=== PATIENT | male | born 1935 | race African-American/Black ===

== ENCOUNTER → 2017-10-21 | Outpatient (CLI) | payer OTHER ==
--- NOTE | 2017-10-21 13:48 | RAD ---
EXAM: Bilateral lower extremity venous Doppler sonogram. HISTORY: Edema. TECHNIQUE: Mcnair scale and color Doppler sonographic evaluation of the bilateral lower extremity veins with spectral waveform analysis was performed. FINDINGS: There is normal color flow, normal compressibility and there are normal spectral waveforms in the common femoral, superficial femoral, popliteal, posterior tibial and greater saphenous veins. IMPRESSION: No Doppler evidence of lower extremity deep venous thrombosis. Electronically signed by: Jazmin Watts MD (10/21/2017 1:44 PM) [place] [id number]
== END | disposition home or self-care (01) ==
LOC: US 13:08
PROVIDERS: ATTEND Nurse Practitioner
DX: R60.0 Localized edema (principal)
CPT/HCPCS: 93970

== ENCOUNTER → 2017-11-13 | Outpatient (CLI) | payer OTHER ==
[~2017-11-13] MED LIST: BUPIVACAINE MPF 0.25% 10 ML VIAL. ONE; IOHEXOL 300 MG/ML 50 ML VIAL. ONE; LIDOCAINE 1% PF 30 ML VIAL. ONE; methylPREDNISolone ACETATE 80 MG/ML VIAL. ONE
== END ==
LOC: SURG 13:02
PROVIDERS: ATTEND Anesthesiology Pain Medicine
DX: M25.511 Pain in right shoulder (principal); I10 Essential (primary) hypertension; I25.10 Atherosclerotic heart disease of native coronary artery without angina pectoris; Z87.39 Personal history of other diseases of the musculoskeletal system and connective tissue; Z86.73 Personal history of transient ischemic attack (TIA), and cerebral infarction without residual deficits
CPT/HCPCS: 20610; 77002; J1040; J2001; J3490; Q9967; 20611

== ENCOUNTER 2018-07-27 13:08 | Inpatient (IN) | payer MEDICARE, OTHER ==
[~2018-07-27] VITALS: Ht 182.9 cm; Wt 80.7 kg
[2018-07-27 17:06] VITALS: BP 169/69
--- NOTE | 2018-07-27 18:00 | NUR ---
Swing Bed Admission Patient Handbook for Correction given to patient. Nursing Problem: weakness and unsteadiness sec to recent hospitalization Cognitive/Behavioral: alert, oriented, cooperative, speaks with a life long stutter Pain: c/o pain in both shoulders and knees Respiratory Status: clear, no soa/cough, RA Skin: dry, intact Bowel/Bladder Continence: frequency, urgency, occ incontinence, wears a brief ADL Functional Status: needs assist w/ ADLs sec to right shoulder cuff tear causing weakness and pain (pt has been told the shoulder in inoperable), uses walker with standby assist, uses left hand to feed and toilet himself, needs assist with dressing Fall(s) prior to admission? none Admitted from [facility] inpatient. Had been admitted there on 07/24/18 for GI bleed
[2018-07-27 19:54] VITALS: BP 151/61
--- NOTE | 2018-07-27 20:08 | NUR ---
NSG NOTE; ADMISSION ADMIT TO ROOM 103 AT 1650 LONG TERM FROM [facility] INPATIENT STATUS FOR RECONDITIONING AND STRENGTHENING FOR RETURN HOME WITH SON AND DIL. PT'S SON WAS HERE ON ARRIVAL PT WAS ADMITTED TO [facility] ON 07/24/18 WITH GI BLEED
[2018-07-27] MEDS ORDERED: HYDR-2869 PO (20:28)
[2018-07-27] MEDS ORDERED: CARB1TAB2 PO (20:28)
[2018-07-27] MEDS ORDERED: TAMS0.4C97 PO (20:28)
[2018-07-27] MEDS ORDERED: OXYB5TAB7 PO (20:28)
[2018-07-27] MEDS ORDERED: SERT100T PO (20:28)
[2018-07-27] MEDS ORDERED: MAGN400T3 PO (20:28)
[2018-07-27] MEDS ORDERED: DOCU100C28 PO (20:28)
[2018-07-27] MEDS ORDERED: BENA20TA4 PO (20:28)
[2018-07-27] MEDS ORDERED: CLOP75TA57 PO (20:28)
[2018-07-27] MEDS ORDERED: HYDR-2155 PO (20:28)
[2018-07-27] MEDS ORDERED: ZINC220T PO (20:28)
[2018-07-27] MEDS ORDERED: ATOR20TA58 PO (20:28)
[2018-07-27] MEDS ORDERED: HYDR50TA6 PO (20:28)
[2018-07-27] MEDS ORDERED: PANT40TA3 PO (20:28)
[2018-07-27] MEDS ORDERED: AMLO10TA8 PO (20:28)
[2018-07-27] MEDS ORDERED: METF10007 PO (20:28)
[2018-07-27] MEDS ORDERED: SULF1TAB23 PO (20:28)
[2018-07-27] MEDS ORDERED: CLON0.1T PO (20:28)
[2018-07-27] MEDS ORDERED: FERR325T14 PO (20:28)
[2018-07-27] MEDS ORDERED: LISI-334 PO (20:28)
[2018-07-27] MEDS ORDERED: FINA5TAB4 PO (20:28)
[2018-07-27] MEDS ORDERED: ASPI-630 PO (20:28)
[2018-07-27] MEDS ORDERED: TRAM50TA PO ×3 (20:28)
[2018-07-27] MEDS ORDERED: SULFAMETHOXAZOLE PO SCH (21:00)
[2018-07-27] MEDS ORDERED: TRIMETHOPRIM PO SCH (21:00)
[2018-07-27] MEDS: MAGNESIUM OXIDE 400 MG TABLET PO SCH (21:38)
[2018-07-27] MEDS: HYDROcodone/APAP 5/325MG 1 TAB TABLET PO PRN (21:39)
[2018-07-27] MEDS: FERROUS SULFATE 325 MG TABLET. PO SCH (21:39)
[2018-07-27] MEDS: ATORVASTATIN CALCIUM 20 MG TABLET PO SCH (21:39)
[2018-07-27] MEDS: CARBIDOPA/LEVODOPA 25/100MG TABLET PO SCH (21:40)
[2018-07-27] MEDS: traMADol 50 MG TABLET PO PRN (21:40)
[2018-07-27] MEDS: OXYBUTYNIN CHLORIDE 5 MG TABLET PO SCH (21:40)
[2018-07-27] MEDS: cloNIDine HCL 0.1 MG TABLET PO SCH (21:41)
[2018-07-27 23:05] VITALS: BP 131/76
--- NOTE | 2018-07-28 05:36 | NUR ---
PT HAD C/O RIGHT SHOULDER PAIN AT BEGINNING OF SHIFT. PRN NORCO GIVEN AND EFFECTIVE. PT SLEPT WELL OVERNIGHT, ONLY WAKING TO GO TO THE BATHROOM. PROGRESSING TOWARDS MEETING GOALS.
[2018-07-28 06:34] VITALS: BP 170/70
[2018-07-28] MEDS ORDERED: ASPIRIN 81 MG TAB.CHEW PO SCH (08:00)
[2018-07-28] MEDS: DOCUSATE SODIUM 100 MG CAPSULE PO SCH (08:28)
[2018-07-28] MEDS: FINASTERIDE 5 MG TABLET PO SCH (08:28)
[2018-07-28] MEDS: SERTRALINE 100 MG TABLET. PO SCH (08:29)
[2018-07-28] MEDS: MAGNESIUM OXIDE 400 MG TABLET PO SCH ×2 (08:29→20:42)
[2018-07-28] MEDS: CARBIDOPA/LEVODOPA 25/100MG TABLET PO SCH ×3 (08:29→20:42)
[2018-07-28] MEDS: LISINOPRIL 20 MG TABLET PO SCH (08:29)
[2018-07-28] MEDS: hydroCHLOROthiazide 25 MG TABLET PO SCH (08:29)
[2018-07-28] MEDS: PANTOPRAZOLE 40 MG TABLET. PO SCH (08:30)
[2018-07-28] MEDS: TAMSULOSIN 0.4 MG CAP.ER.24H. PO SCH (08:30)
[2018-07-28] MEDS: metFORMIN 500 MG TABLET PO SCH ×2 (08:30→16:15)
[2018-07-28] MEDS: amLODIPine BESYLATE 10 MG TABLET PO SCH (08:30)
[2018-07-28] MEDS: FERROUS SULFATE 325 MG TABLET. PO SCH ×3 (08:30→20:42)
[2018-07-28] MEDS: ZINC SULFATE 220 MG CAPSULE. PO SCH (08:31)
[2018-07-28] MEDS: cloNIDine HCL 0.1 MG TABLET PO SCH ×3 (08:31→20:42)
[2018-07-28] MEDS: traMADol 50 MG TABLET PO PRN ×3 (08:41→20:46)
[2018-07-28] MEDS ORDERED: CLOPIDOGREL BISULFATE 75 MG TABLET PO SCH (09:00)
[2018-07-28] MEDS ORDERED: BENAZEPRIL HCL PO SCH (09:00)
[2018-07-28 15:40] VITALS: BP 152/75
--- NOTE | 2018-07-28 19:23 | NUR ---
Swing Bed Admission Nursing Problem: weakness and unsteadiness sec to recent hospitalization Cognitive/Behavioral: alert, oriented, cooperative, speaks with a life long stutter Pain: c/o pain in both shoulders and knees Respiratory Status: clear, no soa/cough, RA Skin: dry, intact Bowel/Bladder Continence: frequency, urgency, occ incontinence, wears a brief ADL Functional Status: needs assist w/ ADLs sec to right shoulder cuff tear causing weakness and pain (pt has been told the shoulder in inoperable), uses walker with standby assist, uses left hand to feed and toilet himself, needs assist with dressing Fall(s) prior to admission? none Admitted from [facility] inpatient. Had been admitted there on 07/24/18 for GI bleed
[2018-07-28 19:30] VITALS: BP 144/57
[2018-07-28] MEDS: HYDROcodone/APAP 5/325MG 1 TAB TABLET PO PRN (19:44)
--- NOTE | 2018-07-28 20:11 | HP ---
ADMIT DATE: 07/27/2018 HISTORY OF PRESENT ILLNESS: The patient is an 83-year-old -[place] male patient who usually follows with the [facility] and lives with his son and ambulates with a cane and a walker, presented with pain and tenderness in his left lower quadrant. The CT scan showed colitis that could be infectious and/or ischemic and apparently he was on aspirin and Plavix. He had had the stroke involving right middle cerebral artery territory with resultant left-sided hemiparesis with residual weakness. On admission, his hemoglobin was 10.3 and white cell count was 12.8. He was investigated and was seen by the Gastroenterology. He underwent upper and lower GI endoscopy. His EGD showed the esophagus was normal. The gastroesophageal junction was at 45 cm, has fine antral nodularity biopsied. He had 12 mm prepyloric polyp biopsied and not removed, and his duodenum was normal to the second portion. Biopsies taken from the second portion. His colonoscopy was done with the scope advanced to the cecum. The ileocolic valve and appendiceal orifices were seen. Preparation was suboptimal with melanotic stool throughout from splenic flexure to the distal descending colon, changes consistent with ischemic colitis. Otherwise, what mucosa seen was normal, was found to have 3 mm sessile polyp at distal transverse, biopsied off and a second 5 mm polyp at proximal sigmoid, biopsied off. No other polyps were seen. Retroflex was normal. It was recommended that his Plavix and aspirin were stopped for a week. He apparently was initially treated also with IV levofloxacin for possible colitis, it was subsequently discontinued. He was transferred to swing bed of [facility] to continue the process of rehabilitation. 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 He is also known to have enlarged prostate for which he is on Flomax. PAST SURGICAL HISTORY: Significant for back surgery and recent upper and lower GI endoscopy and biopsies. FAMILY HISTORY: Positive for high cholesterol and hypertension. SOCIAL HISTORY: He is , lives with his son. Quit smoking in 1986. Does not drink alcohol or recreational drugs. He is retired from a factory. REVIEW OF SYSTEMS: The patient denied any blurring of vision, cataract, glaucoma or macular degeneration. Denied any earache, tinnitus or sensorineural deafness. Denied any nosebleeds, stuffy nose or postnasal drip. Denied any sore throat, sore tongue, toothache, hoarseness of voice or difficulty swallowing. Denied any nausea, vomiting, diarrhea or constipation. Did complain of melena stool. He did complain of frequency, but denied any dysuria or hematuria. Did complain of nocturia. Denied any chest pain or shortness of breath, cough, phlegm or hemoptysis. ALLERGIES: He is allergic to PENICILLIN. MEDICATIONS: He was transferred to our facility to continue on following medications: He is on sulfamethoxazole/trimethoprim 1 tablet twice a day, Flomax 0.8 mg at bedtime, ferrous sulfate 325 mg 3 times a day, Plavix 75 mg once a day, atorvastatin 40 mg, takes 20 mg at bedtime, clonidine 0.1 mg 3 times a day, hydralazine 50 mg 3 times a day, amlodipine 10 mg once a day, benazepril 40 mg once a day, lisinopril 20 mg p.o. daily, aspirin 81 mg once a day, hydrocodone/APAP 5/325 one tablet every 6 hours, tramadol 50 mg daily and tramadol 50 mg at bedtime. He is on sertraline 100 mg at bedtime, carbidopa/levodopa for Sinemet 25/100 one tablet 3 times a day, zinc sulfate 220 mg once a day, hydrochlorothiazide 50 mg once a day, magnesium oxide 400 mg twice a day, Colace 100 mg daily and Protonix 40 mg once a day, metformin 1000 mg twice a day, finasteride 5 mg daily. PHYSICAL EXAMINATION: GENERAL: When I saw him this afternoon, he was sitting on the edge of the bed comfortably in no apparent distress. He was pale, but no jaundice, cyanosis, or thyromegaly. No jugular venous distension. No lower limb edema. VITAL SIGNS: Her heart rate was 68, blood pressure 122/51, temperature was 98.5, respiratory rate was 20, and oxygen saturation was 98% on room air. HEAD, EYES, EARS, NOSE AND THROAT: Showed normocephalic, atraumatic. NECK: Supple. HEART: Showed normal first and second sounds. No gallop, rub or murmur. CHEST: Clear to auscultation. No crepitation or rhonchi. ABDOMEN: Distended, soft with mild tenderness in the left lower quadrant. There is no guarding or rigidity. No organomegaly. All hernial orifice intact. Bowel sounds normal. NEUROLOGIC: He was stuttering. Apparently, this is there since childhood. All his cranial nerves are intact. He moves all extremities without difficulty. He has residual left-sided hemiparesis. He has rotator cuff tear of his right shoulder with limited movement and also pain in his left shoulder. LABORATORY DATA: As of yesterday done at [facility] showed his white cell count was 7200, hemoglobin 8, hematocrit 25, MCV 87 and platelet count of 135,000. His chemistry showed that his serum sodium 136, potassium 3.7, chloride 101, bicarbonate 26, anion gap of 9, BUN 20, creatinine 1.6, estimated GFR was 50 mL per minute. His glucose was 86 and calcium was 8.1, magnesium was 1.5. His prothrombin time was 15.5, INR 1.3. ASSESSMENT: Gastrointestinal bleed with acute blood loss anemia, resolved and the colonoscopy was consistent with ischemic colitis. The patient has multiple other medical problems including hypertension, hyperlipidemia, right middle cerebral artery territory infarct with left-sided hemiparesis, Parkinson's disease, right rotator cuff tear and benign prostatic hypertrophy with bladder outlet obstruction. PLAN: My plan is to hold his Plavix and aspirin for 1 week and we will check his baseline labs and follow him closely. Would continue also with physical and occupational therapy. TRACY VICK MD DR: RENNY/beth JOB#: [id number] / [id number]
[2018-07-28] MEDS: OXYBUTYNIN CHLORIDE 5 MG TABLET PO SCH (20:42)
[2018-07-28] MEDS: ATORVASTATIN CALCIUM 20 MG TABLET PO SCH (20:42)
--- NOTE | 2018-07-28 23:40 | NUR ---
Swing Bed Nursing Note Nursing Problem: Pt here for PT/OT strength and conditioning after hospitalization following a GI bleed. Pt has weakness and unsteadiness r/t recent hospitalization. Cognitive/Behavioral: Pt is A&Ox4. Pt is calm & cooperative with assessment and cares. Pt sitting up in bed watching TV. Pt stated that he had a good day. Pain: Pt c/o pain in both shoulders and knees. PRN Lortab given at change of shift. Respiratory Status: Lungs clear, Pt denies SOA or cough.Pt is on room air. Skin: Skin is dry and intact. Friable skin. Had shower today Bowel/Bladder Continence: Pt with urine frequency and urgency with occ incontinence. Pt wears a brief. LBM 07/28 ADL Functional Status: Pt needs x1 assist w/ ADLs sec to right shoulder cuff tear causing weakness and pain. Pt uses walker with standby assist. Pt uses left hand to feed independently. Pt needs x1 assist with dressing. Pt takes medications whole.
[2018-07-29 05:21] VITALS: BP 171/68
[2018-07-29 06:19] LABS: HEMATOCRIT 26.9 % (39.0-53.0); HEMOGLOBIN 8.8 g/dL (13.0-17.5); RED BLOOD COUNT 3.1 x10^6/uL (4.30-5.70); RED CELL DISTRIBUTION WIDTH 13.9 % (11.5-14.5); WHITE BLOOD COUNT 6.2 x10^3/uL (4.0-11.0)
[2018-07-29 06:31] LABS: ALBUMIN 2.4 g/dL (3.4-5.0); ALBUMIN/GLOBULIN RATIO 0.7 (1.0-1.7); CALCIUM 8.3 mg/dL (8.5-10.1); CREATININE 1.5 mg/dL (0.7-1.3); GFR 54.1; POTASSIUM 3.4 mmol/L (3.5-5.1); TOTAL BILIRUBIN 0.3 mg/dL (0.2-1.0); TOTAL PROTEIN 5.9 g/dL (6.4-8.2)
[2018-07-29] MEDS: TAMSULOSIN 0.4 MG CAP.ER.24H. PO SCH (08:08)
[2018-07-29] MEDS: PANTOPRAZOLE 40 MG TABLET. PO SCH (08:08)
[2018-07-29] MEDS: FINASTERIDE 5 MG TABLET PO SCH (08:08)
[2018-07-29] MEDS: traMADol 50 MG TABLET PO PRN ×2 (08:09→20:25)
[2018-07-29] MEDS: LISINOPRIL 20 MG TABLET PO SCH (08:09)
[2018-07-29] MEDS: cloNIDine HCL 0.1 MG TABLET PO SCH ×3 (08:11→20:24)
[2018-07-29] MEDS: SERTRALINE 100 MG TABLET. PO SCH (08:11)
[2018-07-29] MEDS: MAGNESIUM OXIDE 400 MG TABLET PO SCH ×2 (08:11→20:24)
[2018-07-29] MEDS: amLODIPine BESYLATE 10 MG TABLET PO SCH (08:12)
[2018-07-29] MEDS: hydroCHLOROthiazide 25 MG TABLET PO SCH (08:12)
[2018-07-29] MEDS: CARBIDOPA/LEVODOPA 25/100MG TABLET PO SCH ×3 (08:12→20:23)
[2018-07-29] MEDS: FERROUS SULFATE 325 MG TABLET. PO SCH ×3 (08:12→20:24)
[2018-07-29] MEDS: metFORMIN 500 MG TABLET PO SCH ×2 (08:13→17:16)
[2018-07-29] MEDS: DOCUSATE SODIUM 100 MG CAPSULE PO SCH (08:13)
[2018-07-29] MEDS: ZINC SULFATE 220 MG CAPSULE. PO SCH (08:26)
[2018-07-29] MEDS: HYDROcodone/APAP 5/325MG 1 TAB TABLET PO PRN (13:43)
[2018-07-29 15:00] VITALS: BP 118/67
[2018-07-29 20:15] VITALS: BP 122/74
[2018-07-29] MEDS: OXYBUTYNIN CHLORIDE 5 MG TABLET PO SCH (20:24)
[2018-07-29] MEDS: ATORVASTATIN CALCIUM 20 MG TABLET PO SCH (20:25)
[2018-07-29 23:03] VITALS: BP 170/68
--- NOTE | 2018-07-29 23:45 | NUR ---
Swing Bed Nursing Note Nursing Problem: Pt here for PT/OT strength and conditioning after hospitalization following a GI bleed. Pt has weakness and unsteadiness r/t recent hospitalization. Cognitive/Behavioral: Pt is A&Ox4. Pt is calm & cooperative with assessment and cares. Pt sitting up in bed watching TV. Pt stated that he had a good day. Pain: Pt c/o pain in both shoulders, rating it a 6/10. PRN tramadol given as order with HS medications Respiratory Status: Lungs clear, Pt denies SOA or cough.Pt is on room air. Skin: Skin is dry and intact. Friable skin. Bowel/Bladder Continence: Pt with urine frequency and urgency with occ incontinence. Pt wears a brief. LBM 07/28 ADL Functional Status: Pt needs x1 assist w/ ADLs sec to right shoulder cuff tear causing weakness and pain. Pt uses walker with standby assist. Pt uses left hand to feed independently. Pt needs x1 assist with dressing. Pt takes medications whole.
[2018-07-30 00:08] LABS: HEMOGLOBIN A1C 5.2 % (4.8-5.6)
[2018-07-30 05:45] VITALS: BP 150/63
[2018-07-30] MEDS: PANTOPRAZOLE 40 MG TABLET. PO SCH (08:49)
[2018-07-30] MEDS: LISINOPRIL 20 MG TABLET PO SCH (08:49)
[2018-07-30] MEDS: ZINC SULFATE 220 MG CAPSULE. PO SCH (08:49)
[2018-07-30] MEDS: traMADol 50 MG TABLET PO PRN ×2 (08:49→22:51)
[2018-07-30] MEDS: DOCUSATE SODIUM 100 MG CAPSULE PO SCH (08:49)
[2018-07-30] MEDS: TAMSULOSIN 0.4 MG CAP.ER.24H. PO SCH (08:49)
[2018-07-30] MEDS: FINASTERIDE 5 MG TABLET PO SCH (08:49)
[2018-07-30] MEDS: hydroCHLOROthiazide 25 MG TABLET PO SCH (08:49)
[2018-07-30] MEDS: CARBIDOPA/LEVODOPA 25/100MG TABLET PO SCH ×3 (08:50→20:51)
[2018-07-30] MEDS: FERROUS SULFATE 325 MG TABLET. PO SCH ×3 (08:50→20:51)
[2018-07-30] MEDS: metFORMIN 500 MG TABLET PO SCH ×2 (08:50→17:31)
[2018-07-30] MEDS: POTASSIUM CHLORIDE 20 MEQ TABLET.ER. PO SCH (08:51)
[2018-07-30] MEDS: SERTRALINE 100 MG TABLET. PO SCH (08:51)
[2018-07-30] MEDS: amLODIPine BESYLATE 10 MG TABLET PO SCH (08:51)
[2018-07-30] MEDS: MAGNESIUM OXIDE 400 MG TABLET PO SCH ×2 (08:51→20:51)
[2018-07-30] MEDS: cloNIDine HCL 0.1 MG TABLET PO SCH ×3 (08:51→20:52)
[2018-07-30] MEDS: HYDROcodone/APAP 5/325MG 1 TAB TABLET PO PRN (14:15)
[2018-07-30 18:07] VITALS: BP 149/62
--- NOTE | 2018-07-30 18:23 | NUR ---
Swing Bed Nursing Note Nursing Problem: Pt here for PT/OT strength and conditioning after hospitalization following a GI bleed. Pt has weakness and unsteadiness r/t recent hospitalization. Cognitive/Behavioral: Pt is A&Ox4. Pt is calm & cooperative with assessment and cares. Pt sitting up in bed watching TV. Pt stated that his arthritis is bothering him more today due to the change in the weather. Pain: Pt c/o pain in both shoulders, rating it a 4/10 at this time. After PT patient c/o pain in shoulders a 7/10, PRN loratab admistered per order. Respiratory Status: Lungs clear, Pt denies SOA or cough.Pt is on room air. Skin: Skin is dry and intact. Friable skin. Bowel/Bladder Continence: Pt with urine frequency and urgency with occ incontinence. Pt wears a brief. LBM 07/28 Patient bowel sounds are hypoactive. Patient requested PRN Miralax this shift. Notified of patient hypoactive bowel sounds and patient request, PRN Miralax ordered by Dr. Matos. ADL Functional Status: Pt needs x1 assist w/ ADLs sec to right shoulder cuff tear causing weakness and pain. Pt uses walker with standby assist. Pt uses left hand to feed independently. Pt needs x1 assist with dressing. Pt takes medications whole.
[2018-07-30] MEDS: ATORVASTATIN CALCIUM 20 MG TABLET PO SCH (20:51)
[2018-07-30] MEDS: OXYBUTYNIN CHLORIDE 5 MG TABLET PO SCH (20:51)
--- NOTE | 2018-07-31 03:19 | NUR ---
Swing Bed Nursing Note Nursing Problem: Pt here for PT/OT strength and conditioning after hospitalization following a GI bleed. Pt has weakness and unsteadiness r/t recent hospitalization. Cognitive/Behavioral: Pt is A&Ox4. Pt is calm & cooperative with assessment and cares. Pt sitting up in bed watching TV. Pt stated that he had a good day. Pain: Pt c/o pain in both shoulders, rating it a 7/10. PRN tramadol given as order with HS medications Respiratory Status: Lungs clear, Pt denies SOA or cough.Pt is on room air. Skin: Skin is dry and intact. Friable skin. Bowel/Bladder Continence: Pt with urine frequency and urgency with occ incontinence. Pt wears a brief. LBM 07/29 ADL Functional Status: Pt needs x1 assist w/ ADLs sec to right shoulder cuff tear causing weakness and pain. Pt uses walker with standby assist. Pt uses left hand to feed independently. Pt needs x1 assist with dressing. Pt takes medications whole.
[2018-07-31] MEDS: HYDROcodone/APAP 5/325MG 1 TAB TABLET PO PRN ×2 (05:23→20:11)
--- NOTE | 2018-07-31 05:23 | NUR ---
PATIENT COMPLAINING OF LEG CRAMPS, GOT AN ORDER FOR A CMP TO RECHECK POTASSIUM LEVEL.
[2018-07-31 06:32] VITALS: BP 177/71
[2018-07-31 07:08] LABS: ALBUMIN 2.5 g/dL (3.4-5.0); ALBUMIN/GLOBULIN RATIO 0.7 (1.0-1.7); CALCIUM 8.5 mg/dL (8.5-10.1); CREATININE 1.4 mg/dL (0.7-1.3); GFR 58.6; TOTAL BILIRUBIN 0.3 mg/dL (0.2-1.0); TOTAL PROTEIN 6.1 g/dL (6.4-8.2)
[2018-07-31] MEDS: PANTOPRAZOLE 40 MG TABLET. PO SCH (09:25)
[2018-07-31] MEDS: ZINC SULFATE 220 MG CAPSULE. PO SCH (09:25)
[2018-07-31] MEDS: FINASTERIDE 5 MG TABLET PO SCH (09:25)
[2018-07-31] MEDS: metFORMIN 500 MG TABLET PO SCH ×2 (09:25→17:19)
[2018-07-31] MEDS: CARBIDOPA/LEVODOPA 25/100MG TABLET PO SCH ×3 (09:25→20:12)
[2018-07-31] MEDS: cloNIDine HCL 0.1 MG TABLET PO SCH ×3 (09:28→20:12)
[2018-07-31] MEDS: DOCUSATE SODIUM 100 MG CAPSULE PO SCH (09:28)
[2018-07-31] MEDS: TAMSULOSIN 0.4 MG CAP.ER.24H. PO SCH (09:28)
[2018-07-31] MEDS: POTASSIUM CHLORIDE 20 MEQ TABLET.ER. PO SCH (09:28)
[2018-07-31] MEDS: FERROUS SULFATE 325 MG TABLET. PO SCH ×3 (09:28→20:13)
[2018-07-31] MEDS: MAGNESIUM OXIDE 400 MG TABLET PO SCH ×2 (09:29→20:13)
[2018-07-31] MEDS: hydroCHLOROthiazide 25 MG TABLET PO SCH (09:29)
[2018-07-31] MEDS: LISINOPRIL 20 MG TABLET PO SCH (09:29)
[2018-07-31] MEDS: SERTRALINE 100 MG TABLET. PO SCH (09:29)
[2018-07-31] MEDS: amLODIPine BESYLATE 10 MG TABLET PO SCH (09:30)
[2018-07-31 16:05] VITALS: BP 171/64
[2018-07-31 20:03] VITALS: BP 121/71
[2018-07-31] MEDS: OXYBUTYNIN CHLORIDE 5 MG TABLET PO SCH (20:12)
[2018-07-31] MEDS: ATORVASTATIN CALCIUM 20 MG TABLET PO SCH (20:12)
[2018-07-31] MEDS: traMADol 50 MG TABLET PO PRN (21:20)
--- NOTE | 2018-07-31 22:45 | NUR ---
Swing Bed Nursing Note Nursing Problem: Pt here for PT/OT strength and conditioning after hospitalization following a GI bleed. Pt has weakness and unsteadiness r/t recent hospitalization. Cognitive/Behavioral: Pt is A&Ox4. Pt is calm & cooperative with assessment and cares. Pt sitting up in bed watching TV. Pt stated that he had a good day. Pain: Pt c/o pain in left shoulder, rating it a 5/10. PRN Lortab given then later, tramadol given as order with HS medications Respiratory Status: Lungs clear, Pt denies SOA or cough. Pt is on room air. Skin: Skin is dry and intact. Friable skin. Bowel/Bladder Continence: Pt with urine frequency and urgency with occ incontinence. Pt wears a brief. LBM 07/31. ADL Functional Status: Pt needs x1 assist w/ ADLs sec to right shoulder cuff tear causing weakness and pain. Pt uses walker with standby assist. Pt uses left hand to feed independently. Pt needs x1 assist with dressing. Pt takes medications whole.
[2018-08-01 06:20] VITALS: BP 162/62
[2018-08-01] MEDS: FINASTERIDE 5 MG TABLET PO SCH (08:40)
[2018-08-01] MEDS: TAMSULOSIN 0.4 MG CAP.ER.24H. PO SCH (08:40)
[2018-08-01] MEDS: ZINC SULFATE 220 MG CAPSULE. PO SCH (08:40)
[2018-08-01] MEDS: SERTRALINE 100 MG TABLET. PO SCH (08:40)
[2018-08-01] MEDS: PANTOPRAZOLE 40 MG TABLET. PO SCH (08:40)
[2018-08-01] MEDS: MAGNESIUM OXIDE 400 MG TABLET PO SCH ×2 (08:41→19:47)
[2018-08-01] MEDS: hydroCHLOROthiazide 25 MG TABLET PO SCH (08:41)
[2018-08-01] MEDS: DOCUSATE SODIUM 100 MG CAPSULE PO SCH (08:41)
[2018-08-01] MEDS: metFORMIN 500 MG TABLET PO SCH ×2 (08:41→17:32)
[2018-08-01] MEDS: CARBIDOPA/LEVODOPA 25/100MG TABLET PO SCH ×3 (08:42→19:47)
[2018-08-01] MEDS: FERROUS SULFATE 325 MG TABLET. PO SCH ×3 (08:42→19:48)
[2018-08-01] MEDS: cloNIDine HCL 0.1 MG TABLET PO SCH ×3 (08:42→19:48)
[2018-08-01] MEDS: POTASSIUM CHLORIDE 20 MEQ TABLET.ER. PO SCH (08:42)
[2018-08-01] MEDS: LISINOPRIL 20 MG TABLET PO SCH (08:43)
[2018-08-01] MEDS: amLODIPine BESYLATE 10 MG TABLET PO SCH (08:43)
[2018-08-01 14:59] VITALS: BP 147/62
[2018-08-01] MEDS: HYDROcodone/APAP 5/325MG 1 TAB TABLET PO PRN (17:40)
[2018-08-01] MEDS: OXYBUTYNIN CHLORIDE 5 MG TABLET PO SCH (19:47)
[2018-08-01] MEDS: ATORVASTATIN CALCIUM 20 MG TABLET PO SCH (19:47)
[2018-08-01] MEDS: traMADol 50 MG TABLET PO PRN (19:48)
[2018-08-02 05:50] VITALS: BP 161/67
[2018-08-02] MEDS: PANTOPRAZOLE 40 MG TABLET. PO SCH (08:21)
[2018-08-02] MEDS: FINASTERIDE 5 MG TABLET PO SCH (08:21)
[2018-08-02] MEDS: DOCUSATE SODIUM 100 MG CAPSULE PO SCH (08:21)
[2018-08-02] MEDS: metFORMIN 500 MG TABLET PO SCH ×2 (08:22→17:41)
[2018-08-02] MEDS: ZINC SULFATE 220 MG CAPSULE. PO SCH (08:22)
[2018-08-02] MEDS: LISINOPRIL 20 MG TABLET PO SCH (08:22)
[2018-08-02] MEDS: SERTRALINE 100 MG TABLET. PO SCH (08:22)
[2018-08-02] MEDS: TAMSULOSIN 0.4 MG CAP.ER.24H. PO SCH (08:22)
[2018-08-02] MEDS: amLODIPine BESYLATE 10 MG TABLET PO SCH (08:22)
[2018-08-02] MEDS: FERROUS SULFATE 325 MG TABLET. PO SCH ×3 (08:23→20:51)
[2018-08-02] MEDS: cloNIDine HCL 0.1 MG TABLET PO SCH ×3 (08:23→20:53)
[2018-08-02] MEDS: hydroCHLOROthiazide 25 MG TABLET PO SCH (08:23)
[2018-08-02] MEDS: MAGNESIUM OXIDE 400 MG TABLET PO SCH ×2 (08:23→20:54)
[2018-08-02] MEDS: CARBIDOPA/LEVODOPA 25/100MG TABLET PO SCH ×3 (08:23→20:51)
[2018-08-02] MEDS: POTASSIUM CHLORIDE 20 MEQ TABLET.ER. PO SCH (08:24)
[2018-08-02] MEDS: HYDROcodone/APAP 5/325MG 1 TAB TABLET PO PRN (13:58)
[2018-08-02 14:31] VITALS: BP 119/58
--- NOTE | 2018-08-02 15:43 | NUR ---
Swing Bed Nursing Note Nursing Problem: Pt here for PT/OT strength and conditioning after hospitalization following a GI bleed. Pt has weakness and unsteadiness r/t recent hospitalization. Cognitive/Behavioral: Pt is A&Ox4. Pt is calm & cooperative with assessment and cares. Pt sitting up in chair watching TV. Pt stated that he was feeling pretty good this morning. Pain: Pt reported knee pain after working with PT/OT. PRN Lortab administered as ordered. Respiratory Status: Lungs clear, Pt denies SOA or cough. Pt is on room air. Skin: Skin is dry and intact. Friable skin. Bowel/Bladder Continence: Pt with urine frequency and urgency with occ incontinence. Pt wears a brief. LBM 07/31. ADL Functional Status: Pt needs x1 assist w/ ADLs sec to right shoulder cuff tear causing weakness and pain. Pt uses walker with standby assist. Pt uses left hand to feed independently. Pt needs x1 assist with dressing. Pt takes medications whole.
[2018-08-02 19:25] VITALS: BP 107/57
[2018-08-02] MEDS: OXYBUTYNIN CHLORIDE 5 MG TABLET PO SCH (20:51)
[2018-08-02] MEDS: ATORVASTATIN CALCIUM 20 MG TABLET PO SCH (20:52)
[2018-08-02] MEDS: traMADol 50 MG TABLET PO PRN (20:52)
--- NOTE | 2018-08-02 23:55 | NUR ---
Swing Bed Nursing Note Nursing Problem: Pt here for PT/OT strength and conditioning after hospitalization following a GI bleed. Pt has weakness and unsteadiness r/t recent hospitalization. Cognitive/Behavioral: Pt is A&Ox4. Pt is calm & cooperative with assessment and cares. Pt sitting up in chair watching TV at change of shift. Pt stated that he had a good day adn was up for taking a shower before bed. Pain: Pt c/o pain in both shoulders and knees. PRN Tramadol given with HS medications after shower. Respiratory Status: Lungs clear, Pt denies SOA or cough. Pt is on room air. Skin: Skin is dry and intact. Friable skin. Had shower before bedtime Bowel/Bladder Continence: Pt with urine frequency and urgency with occ incontinence. Pt uses urinal and wears a brief. LBM 07/31 ADL Functional Status: Pt needs x1 assist w/ ADLs r/t to shoulder weakness and pain. Pt uses walker with standby assist. Pt able to eat independently. Pt needs minimal assist with dressing. Pt takes medications whole.
[2018-08-03] MEDS: HYDROcodone/APAP 5/325MG 1 TAB TABLET PO PRN ×2 (00:51→20:10)
[2018-08-03 05:19] VITALS: BP 153/58
[2018-08-03] MEDS: ASPIRIN 81 MG TAB.CHEW PO SCH (08:19)
[2018-08-03] MEDS: metFORMIN 500 MG TABLET PO SCH ×2 (08:19→17:10)
[2018-08-03] MEDS: CLOPIDOGREL BISULFATE 75 MG TABLET PO SCH (08:19)
[2018-08-03] MEDS: ZINC SULFATE 220 MG CAPSULE. PO SCH (08:19)
[2018-08-03] MEDS: LISINOPRIL 20 MG TABLET PO SCH (08:19)
[2018-08-03] MEDS: CARBIDOPA/LEVODOPA 25/100MG TABLET PO SCH ×3 (08:19→20:09)
[2018-08-03] MEDS: amLODIPine BESYLATE 10 MG TABLET PO SCH (08:20)
[2018-08-03] MEDS: MAGNESIUM OXIDE 400 MG TABLET PO SCH ×2 (08:20→20:09)
[2018-08-03] MEDS: DOCUSATE SODIUM 100 MG CAPSULE PO SCH (08:20)
[2018-08-03] MEDS: PANTOPRAZOLE 40 MG TABLET. PO SCH (08:20)
[2018-08-03] MEDS: POTASSIUM CHLORIDE 20 MEQ TABLET.ER. PO SCH (08:20)
[2018-08-03] MEDS: cloNIDine HCL 0.1 MG TABLET PO SCH ×3 (08:20→20:10)
[2018-08-03] MEDS: TAMSULOSIN 0.4 MG CAP.ER.24H. PO SCH (08:20)
[2018-08-03] MEDS: SERTRALINE 100 MG TABLET. PO SCH (08:20)
[2018-08-03] MEDS: hydroCHLOROthiazide 25 MG TABLET PO SCH (08:24)
[2018-08-03] MEDS: FINASTERIDE 5 MG TABLET PO SCH (08:26)
[2018-08-03] MEDS: FERROUS SULFATE 325 MG TABLET. PO SCH ×3 (08:26→20:09)
--- NOTE | 2018-08-03 10:59 | NUR ---
Swing Bed Nursing Note Nursing Problem: Pt here for PT/OT strength and conditioning after hospitalization following a GI bleed. Pt has weakness and unsteadiness r/t recent hospitalization. Cognitive/Behavioral: Pt is A&Ox4. Pt is calm & cooperative with assessment and cares. Pt sitting up in chair watching TV. Pain: Pt c/o chronic pain in upper extremities (shoulders). Respiratory Status: Lungs are CTA. Skin: Skin is dry and intact. Friable skin. Showers on Mondays, Wednesdays, and Fridays. Bowel/Bladder Continence: Pt with urine frequency and urgency with occ incontinence. Pt uses urinal and wears a brief. LBM 07/31 ADL Functional Status: Pt needs x1 assist w/ ADLs r/t to shoulder weakness and pain. Pt uses walker with standby assist. Pt able to eat independently. Pt needs minimal assist with dressing. Pt takes medications whole.
[2018-08-03 15:34] VITALS: BP 166/74
[2018-08-03] MEDS: traMADol 50 MG TABLET PO PRN (17:10)
[2018-08-03 19:22] VITALS: BP 151/63
[2018-08-03] MEDS: ATORVASTATIN CALCIUM 20 MG TABLET PO SCH (20:09)
[2018-08-03] MEDS: OXYBUTYNIN CHLORIDE 5 MG TABLET PO SCH (20:09)
--- NOTE | 2018-08-03 23:25 | NUR ---
Swing Bed Nursing Note Nursing Problem: Pt here for PT/OT strength and conditioning after hospitalization following a GI bleed. Pt has weakness and unsteadiness r/t recent hospitalization. Cognitive/Behavioral: Pt is A&Ox4. Pt is calm & cooperative with assessment and cares. Pt sitting up in chair watching TV at change of shift. Pt stated that he had a good day. Pt seemed excited about possibility of leaving on . Pain: Pt c/o pain in both shoulders and knees. PRN Lortab given with HS medications. Respiratory Status: Lungs clear, Pt denies SOA or cough. Pt is on room air. Skin: Skin is dry and intact. Friable skin. Bowel/Bladder Continence: Pt with urine frequency and urgency with occ incontinence. Pt uses urinal and wears a brief. LBM 4/2 ADL Functional Status: Pt needs x1 assist w/ ADLs r/t to shoulder weakness and pain. Pt uses walker with standby assist. Pt able to eat independently. Pt needs minimal assist with dressing. Pt takes medications whole.
--- NOTE | 2018-08-04 00:34 | PN ---
DATE: 08/03/2018 SUBJECTIVE: The patient is resting, slightly propped up in bed, in no apparent respiratory distress. On questioning him, he did complain of pain in his shoulders and right knee; however, he denied any hematemesis, melena or hematochezia. His blood sugar was well within acceptable range. His baseline hemoglobin and hematocrit were 88 and 26.9. His chemistry was normal and in fact, his hemoglobin A1c was only 5.2%. PHYSICAL EXAMINATION: GENERAL: When I saw him today, he looked well and was clearly in no apparent respiratory distress, pale, but no jaundice, cyanosis, or thyromegaly. No jugular venous distention. No limb edema. VITAL SIGNS: His heart rate was 65, blood pressure was 153/58, temperature was 98.4, respiratory rate was 18 and oxygen saturation was 95%. HEAD, EYES, EARS, NOSE AND THROAT: Normocephalic, atraumatic. NECK: Supple. HEART: Showed normal first and second heart sounds. No gallop, rub or murmur. CHEST: Clear to auscultation. No crepitation or rhonchi. ABDOMEN: Distended, soft, nontender. NEUROLOGIC: He was awake, alert, responding appropriately. Cranial nerves intact. He moves his extremities without difficulty. He does have a residual left-sided hemiparesis, has rotator cuff tear of his right shoulder with limited movement and also pain in his left shoulder. ASSESSMENT: 1. Acute blood loss anemia due to lower gastrointestinal bleed with underlying ischemic colitis. 2. The patient has multiple other medical problems including: A. Hypertension. B. Hyperlipidemia. C. Right mid cerebral artery territory infarct with left side hemiplegia. D. Parkinson's disease. E. Rotator cuff tear. F. Benign prostatic hypertrophy with bladder outlet obstruction. PLAN: My plan is to repeat all his labs tomorrow. His Plavix and aspirin were resumed. TRACY VICK MD DR: RENNY/beth JOB#: [id number] / [id number]
[2018-08-04 05:53] VITALS: BP 151/55
[2018-08-04 06:23] LABS: HEMATOCRIT 28.5 % (39.0-53.0); HEMOGLOBIN 9.1 g/dL (13.0-17.5); RED BLOOD COUNT 3.29 x10^6/uL (4.30-5.70); RED CELL DISTRIBUTION WIDTH 13.8 % (11.5-14.5); WHITE BLOOD COUNT 8.3 x10^3/uL (4.0-11.0)
[2018-08-04 06:35] LABS: ALBUMIN 2.7 g/dL (3.4-5.0); ALBUMIN/GLOBULIN RATIO 0.8 (1.0-1.7); CALCIUM 8.6 mg/dL (8.5-10.1); CREATININE 1.5 mg/dL (0.7-1.3); GFR 54.1; POTASSIUM 4.6 mmol/L (3.5-5.1); TOTAL BILIRUBIN 0.3 mg/dL (0.2-1.0); TOTAL PROTEIN 6.2 g/dL (6.4-8.2)
[2018-08-04] MEDS: PANTOPRAZOLE 40 MG TABLET. PO SCH (08:35)
[2018-08-04 08:37] VITALS: BP 138/62
[2018-08-04] MEDS: SERTRALINE 100 MG TABLET. PO SCH (08:38)
[2018-08-04] MEDS: traMADol 50 MG TABLET PO PRN ×2 (08:38→20:05)
[2018-08-04] MEDS: CARBIDOPA/LEVODOPA 25/100MG TABLET PO SCH ×3 (08:38→20:05)
[2018-08-04] MEDS: ASPIRIN 81 MG TAB.CHEW PO SCH (08:38)
[2018-08-04] MEDS: CLOPIDOGREL BISULFATE 75 MG TABLET PO SCH (08:38)
[2018-08-04] MEDS: MAGNESIUM OXIDE 400 MG TABLET PO SCH ×2 (08:39→20:04)
[2018-08-04] MEDS: DOCUSATE SODIUM 100 MG CAPSULE PO SCH (08:39)
[2018-08-04] MEDS: POTASSIUM CHLORIDE 20 MEQ TABLET.ER. PO SCH (08:39)
[2018-08-04] MEDS: TAMSULOSIN 0.4 MG CAP.ER.24H. PO SCH (08:39)
[2018-08-04] MEDS: ZINC SULFATE 220 MG CAPSULE. PO SCH (08:39)
[2018-08-04] MEDS: FERROUS SULFATE 325 MG TABLET. PO SCH ×3 (08:39→20:04)
[2018-08-04] MEDS: metFORMIN 500 MG TABLET PO SCH ×2 (08:39→16:37)
[2018-08-04] MEDS: hydroCHLOROthiazide 25 MG TABLET PO SCH (08:39)
[2018-08-04] MEDS: FINASTERIDE 5 MG TABLET PO SCH (08:39)
[2018-08-04] MEDS: LISINOPRIL 20 MG TABLET PO SCH (08:40)
[2018-08-04] MEDS: cloNIDine HCL 0.1 MG TABLET PO SCH ×3 (08:41→20:06)
[2018-08-04] MEDS: amLODIPine BESYLATE 10 MG TABLET PO SCH (08:41)
[2018-08-04] MEDS: HYDROcodone/APAP 5/325MG 1 TAB TABLET PO PRN ×2 (12:43→20:04)
[2018-08-04 15:16] VITALS: BP 120/64
--- NOTE | 2018-08-04 15:30 | NUR ---
Swing Bed Nursing Note Nursing Problem: Pt here for PT/OT strength and conditioning after hospitalization following a GI bleed. Pt has weakness and unsteadiness r/t recent hospitalization. Cognitive/Behavioral: Pt is A&Ox4. Pt is calm & cooperative with assessment and cares. Pt sitting up in chair watching TV. Pain: Pt c/o chronic pain in upper extremities (shoulders). PRN tramadol administered with morning meds and PRN Loratab administered in afternoon upon request of patient. Respiratory Status: Lungs are CTA. Skin: Skin is dry and intact. Friable skin. Showers on Mondays, Wednesdays, and Fridays. Bowel/Bladder Continence: Pt with urine frequency and urgency with occ incontinence. Pt uses urinal and wears a brief. LBM 07/31 ADL Functional Status: Pt needs x1 assist w/ ADLs r/t to shoulder weakness and pain. Pt uses walker with standby assist. Pt able to eat independently. Pt needs minimal assist with dressing. Pt takes medications whole.
[2018-08-04] MEDS: OXYBUTYNIN CHLORIDE 5 MG TABLET PO SCH (20:05)
[2018-08-04] MEDS: ATORVASTATIN CALCIUM 20 MG TABLET PO SCH (20:05)
--- NOTE | 2018-08-04 22:34 | NUR ---
Swing Bed Nursing Note Nursing Problem: Pt here for PT/OT strength and conditioning after hospitalization following a GI bleed. Pt has weakness and unsteadiness r/t recent hospitalization. Cognitive/Behavioral: Pt is A&Ox4. Pt is calm & cooperative with assessment and cares. Pt lying in bed resting. Pain: Pt c/o chronic pain in upper extremities (shoulders). PRN tramadol administered with HS meds and PRN Loratab administered as well upon request of patient. Respiratory Status: Lungs are CTA. Skin: Skin is dry and intact. Friable skin. Showers on Mondays, Wednesdays, and Fridays. Bowel/Bladder Continence: Pt with urine frequency and urgency with occ incontinence. Pt uses urinal and wears a brief. LBM 07/31 ADL Functional Status: Pt needs x1 assist w/ ADLs r/t to shoulder weakness and pain. Pt uses walker with standby assist. Pt able to eat independently. Pt needs minimal assist with dressing. Pt takes medications whole.
[2018-08-05] MEDS: HYDROcodone/APAP 5/325MG 1 TAB TABLET PO PRN (02:37)
[2018-08-05 05:14] VITALS: BP 142/60
[2018-08-05] MEDS: FINASTERIDE 5 MG TABLET PO SCH (07:29)
[2018-08-05] MEDS: metFORMIN 500 MG TABLET PO SCH (07:29)
[2018-08-05] MEDS: LISINOPRIL 20 MG TABLET PO SCH (07:30)
[2018-08-05] MEDS: MAGNESIUM OXIDE 400 MG TABLET PO SCH (07:30)
[2018-08-05] MEDS: SERTRALINE 100 MG TABLET. PO SCH (07:30)
[2018-08-05] MEDS: hydroCHLOROthiazide 25 MG TABLET PO SCH (07:30)
[2018-08-05] MEDS: PANTOPRAZOLE 40 MG TABLET. PO SCH (07:30)
[2018-08-05] MEDS: TAMSULOSIN 0.4 MG CAP.ER.24H. PO SCH (07:30)
[2018-08-05] MEDS: POTASSIUM CHLORIDE 20 MEQ TABLET.ER. PO SCH (07:31)
[2018-08-05] MEDS: DOCUSATE SODIUM 100 MG CAPSULE PO SCH (07:31)
[2018-08-05] MEDS: CARBIDOPA/LEVODOPA 25/100MG TABLET PO SCH ×2 (07:31→14:00)
[2018-08-05] MEDS: CLOPIDOGREL BISULFATE 75 MG TABLET PO SCH (07:32)
[2018-08-05] MEDS: cloNIDine HCL 0.1 MG TABLET PO SCH ×2 (07:32→14:00)
[2018-08-05] MEDS: amLODIPine BESYLATE 10 MG TABLET PO SCH (07:32)
[2018-08-05] MEDS: ASPIRIN 81 MG TAB.CHEW PO SCH (07:32)
[2018-08-05] MEDS: ZINC SULFATE 220 MG CAPSULE. PO SCH (07:32)
[2018-08-05] MEDS: FERROUS SULFATE 325 MG TABLET. PO SCH ×2 (07:32→14:00)
[2018-08-05] MEDS ORDERED: POLYETHYLENE GLYCOL 3350 17 GM PACKET. PO PRN (07:45)
--- NOTE | 2018-08-05 10:00 | NUR ---
Swing Bed Nursing Note Nursing Problem: Pt here for PT/OT strength and conditioning after hospitalization following a GI bleed. Pt has weakness and unsteadiness r/t recent hospitalization. Cognitive/Behavioral: Pt is A&Ox4. Pt is calm & cooperative with assessment and cares. Pain: Pt denies pain at this time. Respiratory Status: Lungs are CTA. Skin: Skin is dry and intact. Friable skin. Showers on Mondays, Wednesdays, and Fridays. Bowel/Bladder Continence: Pt with urine frequency and urgency with occ incontinence. Pt uses urinal and wears a brief. LBM 07/31 ADL Functional Status: Pt needs x1 assist w/ ADLs r/t to shoulder weakness and pain. Pt uses walker with standby assist. Pt able to eat independently. Pt needs minimal assist with dressing. Pt takes medications whole.
[2018-08-05 14:00] VITALS: BP 136/56
--- NOTE | 2018-08-05 14:44 | NUR ---
Pt is discharging. Many medications have been changed since admission to [facility]. RN went over medications with Dr Matos, called patient to verify what medications to take. Instructed pt not to take metformin and to [facility]. Copy of blood sugars and A1C sent with patient. Pt instructed to keep taking the clonidine, hydralazine, hctz, lisinopril at 20mg instead of 40mg, and norvasc as well as protonix. [facility] states they do not take over the phone scripts but to fax them, RN faxed scripts for hctz, protonix, clonidine, and lisinopril. Patient instructed to call us with any questions or concerns and if there was any issue with getting medications from pharmacy.
--- NOTE | 2018-08-13 14:39 | DS ---
DATE OF DISCHARGE: 08/05/2018 HISTORY OF PRESENT ILLNESS: The patient is an 83-year-old -[place] male patient, who was admitted as a transfer from [facility] where he was evaluated by the Gastroenterology team as he presented with pain and tenderness in his left lower quadrant CT scan showed colitis and it could be infectious and/or ischemic and apparently he was on aspirin and Plavix. 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 On admission, his hemoglobin was 10.3 and white cell count was 12.8. He was investigated by both upper and lower GI endoscopy and he has had his colonoscopy with the scope advanced to the cecum. The ileocolic valve and appendiceal orifices were seen. Preparation was suboptimal as melanotic stool throughout, the splenic flexure to the distal descending colon. Changes are consistent with ischemic colitis, otherwise, what mucosa was seen was normal and was found to have 3 mm sessile polyp at the distal transverse biopsied off and a second 5 mm polyp at the proximal sigmoid biopsied off. No other polyps were seen. Retroflexion was normal. It was recommended that his Plavix and aspirin were stopped for a week and he was actually treated initially with IV levofloxacin for possible colitis that was subsequently discontinued and he was transferred to [facility] to swing bed to continue the process of rehabilitation. The patient did well. His mobility improved and has been up and about walking with a walker without assistance. He has had no further episode of melena stool and his H and H has stabilized. In fact his H and H on admission was 8.8 and 26.9. On day of discharge it was 9.1 and 28.5 with normal white cell count and platelets. PHYSICAL EXAMINATION: GENERAL: On examining him on the day of discharge, he looked well and was clearly in no apparent respiratory distress, slightly pale, but no jaundice, cyanosis, or thyromegaly. No jugular venous distension. No limb edema. VITAL SIGNS: His heart rate was 57, blood pressure was 142/60, temperature was 98.6, respiratory rate was 18 and oxygen saturation was 98%. HEAD, EYES, EARS, NOSE AND THROAT: Showed normocephalic, atraumatic. NECK: Supple. HEART: Showed normal first and second heart sounds. No gallop, rub or murmur. CHEST: Clear to auscultation. No crepitation or rhonchi. ABDOMEN: Distended, soft with no tenderness. No guarding or rigidity. No organomegaly. All hernial orifice intact. Bowel sounds normal. NEUROLOGIC: He is awake, alert, responding appropriately. All his cranial nerves are intact. He has residual left-sided hemiparesis. The patient is able to ambulate with a walker without assistance. LABORATORY DATA: His lab work showed his white cell count was 8300, hemoglobin 9, hematocrit 28, MCV 87 and platelet count 220,000. His serum sodium was 134, potassium 4.6, chloride 99, bicarbonate 29, anion gap of 6, BUN 33, creatinine 1.5, estimated GFR was 54 mL per minute. His glucose was 94, calcium was 8.6. Total bilirubin, AST, ALT, alkaline phosphatase were normal. His total protein was 6.2, albumin was 2.7. DISCHARGE MEDICATIONS: He was discharged home to continue on following medications: Amlodipine besylate 10 mg once a day, aspirin 81 mg once a day, atorvastatin calcium 20 mg at bedtime, benazepril 40 mg once a day, carbidopa/levodopa 25/100 three times a day, clonidine 0.1 mg 3 times a day, Plavix 75 mg once a day, Colace 100 mg daily, ferrous sulfate 325 mg 3 times a day with food, finasteride 5 mg daily, hydralazine 50 mg 3 times a day, hydrochlorothiazide 50 mg daily, hydrocodone/APAP 5/325 one tablet every 6 hours, lisinopril 20 mg daily, magnesium oxide 400 mg twice a day, metformin 1000 mg twice a day, oxybutynin chloride 10 mg at bedtime, Protonix 40 mg once a day, sertraline for Zoloft 100 mg once a day, Flomax 0.8 mg daily, tramadol 50 mg at bedtime, tramadol 25 mg daily with breakfast, and zinc sulfate 220 mg once a day. FINAL DISCHARGE DIAGNOSES: 1. Acute blood loss anemia due to lower gastrointestinal bleeding secondary to underlying ischemic colitis. His H and H is stable. 2. The patient has multiple other medical problems including: A. Hypertension. B. Hyperlipidemia. C. Right middle cerebral artery territory infarct with left-sided hemiplegia. D. Parkinson's disease. E. Rotator cuff tear. F. Benign prostatic hypertrophy for which he is on finasteride and Flomax. TRACY VICK MD DR: RENNY/beth JOB#: [id number] / [id number]
== END 2018-08-05 14:15 | disposition home health service (06) | DRG 378 ==
LOC: 1 SOUTH 16:45 → UNDODISIN 08-02 14:50
PROVIDERS: ADMIT Internal Medicine; ATTEND Internal Medicine
DX: K92.2 Gastrointestinal hemorrhage, unspecified (principal); K55.9 Vascular disorder of intestine, unspecified; D62 Acute posthemorrhagic anemia; N13.8 Other obstructive and reflux uropathy; I69.354 Hemiplegia and hemiparesis following cerebral infarction affecting left non-dominant side; K52.9 Noninfective gastroenteritis and colitis, unspecified; E78.5 Hyperlipidemia, unspecified; G20 Parkinson's disease; I10 Essential (primary) hypertension; J42 Unspecified chronic bronchitis; M75.101 Unspecified rotator cuff tear or rupture of right shoulder, not specified as traumatic; N40.1 Benign prostatic hyperplasia with lower urinary tract symptoms; Z82.49 Family history of ischemic heart disease and other diseases of the circulatory system; Z87.891 Personal history of nicotine dependence; Z88.0 Allergy status to penicillin; Z79.899 Other long term (current) drug therapy
CPT/HCPCS: 36415; 80053; 82947; 83036; 85027; 97110; 97116; 97530; 97535